=== PATIENT | male | born 1995 | race Caucasian/White ===

== ENCOUNTER 2016-08-31 18:32 | Emergency (ER) | payer OTHER ==
[~2016-08-31] VITALS: Ht 190.5 cm; Wt 99.8 kg
[2016-08-31 18:43] VITALS: BP_SYST 129
--- NOTE | 2016-08-31 19:25 | NUR ---
Patient to ER bed 03 to gown for evaluation. Side rails up. Report given to Juan
--- NOTE | 2016-08-31 19:27 | NUR ---
ED PAINTER Diaz at bedside for medical evaluation.
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
[2016-08-31] MEDS ORDERED: HYDROcodone/ACETAMIN 5-325 MG TAB (NORCO/ VICODIN) PO ONE (19:45)
[2016-08-31] MEDS ORDERED: BACITRACIN 1 GM OINT TP ONE (19:45)
--- NOTE | 2016-08-31 20:01 | NUR ---
Patient reports pain 2/10 15 minutes after administration of [place]. No adverse reactions noted. Will continue to monitor.
[2016-08-31 20:05] VITALS: BP_SYST 129
--- NOTE | 2016-08-31 20:05 | NUR ---
Patient given written and verbal discharge instructions and verbalizes understanding. ER MD discussed with patient the results and treatment provided. Patient in stable condition. ID arm band removed. Rx of motring and tylenol with codeine given. Patient educated on pain management and to follow up with PMD. Pain Scale 2/10 tolerable for patient. Opportunity for questions provided and answered.
== END 2016-08-31 20:05 | disposition home or self-care (01) ==
LOC: SED 18:32
DX: S92.812A Other fracture of left foot, initial encounter for closed fracture (principal); W22.8XXA Striking against or struck by other objects, initial encounter; Y93.89 Activity, other specified; Y92.89 Other specified places as the place of occurrence of the external cause; Y99.8 Other external cause status
CPT/HCPCS: 99284